=== PATIENT | male | born 1975 | race Caucasian/White ===

== ENCOUNTER 2017-11-11 09:18 | Emergency (ER) | payer OTHER ==
[2017-11-11 09:33] VITALS: RESP 20
[2017-11-11 11:35] LABS: HEMATOCRIT 43 % (39-53); HEMOGLOBIN 14.7 gm/dl (13.5-17.7); MEAN CORPUSCULAR HEMOGLOBIN 26.7 pg (27.0-32.0); MEAN CORPUSCULAR HGB CONC 34.1 gm/dl (32.0-36.0)
[2017-11-11 11:56] LABS: ALBUMIN 4.1 gm/dl (3.4-5.0); BILIRUBIN,TOTAL 0.7 mg/dl (0.2-1.0); CALCIUM 9.6 mg/dl (8.5-10.1); CARBON DIOXIDE 30.1 mEq/L (21-32); CREATININE 1.08 mg/dl (0.80-1.30); POTASSIUM 4.3 mMol/L (3.5-5.1); THYROID STIMULATING HORMONE 0.744 uIU/ml (0.358-3.740); TOTAL PROTEIN 8.2 gm/dl (6.4-8.2)
[2017-11-11 11:59] LABS: MEAN CORPUSCULAR VOLUME 78 fL (80-100)
[2017-11-11 12:02] LABS: ALCOHOL 0.003 gm/dl (0.000-0.08)
[2017-11-11 12:06] LABS: APPEARANCE,URINE Clear; BILIRUBIN,URINE NEGATIVE (NEGATIVE); COLOR,URINE Yellow; GLUCOSE, URINE (UA) NEGATIVE (NEGATIVE); KETONES,URINE NEGATIVE (NEGATIVE); LEUKOCYTE ESTERASE ,URINE NEGATIVE (NEGATIVE); NITRATE,URINE NEGATIVE (NEGATIVE); OCCULT BLOOD,URINE TRACE INTACT (NEG-TRACE); UROBILINOGEN,URINE 0.2 (0.2-1.0 EU)
[2017-11-11 12:14] LABS: AMPHETAMINES NEGATIVE (NEGATIVE); BARBITUATES NEGATIVE (NEGATIVE); BENZODIAZEPINES NEGATIVE (NEGATIVE); CANNABINOL(THC) NEGATIVE (NEGATIVE); COCAINE(COC) NEGATIVE (NEGATIVE); METHADONE NEGATIVE (NEGATIVE); METHAMPHETAMINES NEGATIVE (NEGATIVE); OPIATES(OP13) NEGATIVE (NEGATIVE); OXYCODONE(OXY) NEGATIVE (NEGATIVE); PROPOXYPHENE(PPX) NEGATIVE (NEGATIVE); TRICYCLIC ANTIDEPRESSANTS POSITIVE (NEGATIVE)
[2017-11-11 12:25] LABS: BAND NEUTROPHILS % (MANUAL) 4 %; LYMPHOCYTES % (MANUAL) 23 % (10-50); NEUTROPHILS % (MANUAL) 64 % (37-80)
[2017-11-11 12:26] LABS: BASOPHILS % (MANUAL) 1 % (0-3); EOSINOPHILS % (MANUAL) 2 % (0-9); MONOCYTES % (MANUAL) 6 % (0-12); NORMAL RBCS PRESENT
[2017-11-11 12:35] LABS: BACTERIA TRACE (< 1+); CRYSTALS NEGATIVE (0-3 AVE/HPF); EPITHELIAL CELLS 0-1 (SQUAMOUS); RBC,URINE 0-2 (0-3AV/HPF); WBC,URINE 0-2 (0-5AV/HPF)
[2017-11-11] MEDS ORDERED: IBUPROFEN 400 MG TAB PO ONE (13:37)
[2017-11-11] MEDS ORDERED: IBUPROFEN 400 MG TAB ONE (13:38)
[2017-11-11 13:58] VITALS: TEMP 97.4
[2017-11-11 17:27] VITALS: BP 143/86; PULSE 98; O2SAT 99
== END 2017-11-11 18:48 | DRG 880 ==
LOC: ED 09:18
DX: R45.851 Suicidal ideations (principal); F41.8 Other specified anxiety disorders; F42.9 Obsessive-compulsive disorder, unspecified
CPT/HCPCS: 36415; 80053; 80305; 80307; 81001; 84443; 85007; 85027; 99283; 99285; A9270-GY